=== PATIENT | female | born 1990 | race Asian ===

== ENCOUNTER 2016-12-15 19:31 | Emergency (ER) | payer OTHER ==
[~2016-12-15] VITALS: Ht 149.9 cm; Wt 48.9 kg
[2016-12-15 19:54] VITALS: TEMP 36.7; Ht 149.9 cm; Wt 48.9 kg
[2016-12-15] MEDS ORDERED: DIPHTHERIA/TETANUS/PERTUSSIS 0.5 ML SYR/VIAL IM. ONE (20:30)
[2016-12-15] MEDS ORDERED: XYLOCAINE 1%/SOD BICARB 20 ML VIAL INFIL ONE (20:30)
[2016-12-15] MEDS ORDERED: BCPILLS PO (20:32)
[2016-12-15] MEDS ORDERED: FEXO1TAB49 PO (20:32)
[2016-12-15] MEDS ORDERED: CLR10 PO (20:32)
[2016-12-15] MEDS ORDERED: IBUP-1050 PO (20:32)
[2016-12-15] MEDS ORDERED: AMOX875T PO (21:48)
--- NOTE | 2016-12-15 21:49 | EMERGENCY ROOM VISIT NOTE ---
ED Visit Note First contact with patient: 20:12 CHIEF COMPLAINT: Right bottom lip and right hand laceration from a dog bite this evening HISTORY OF PRESENT ILLNESS: Patient is a [id number] 26-year-old female who presents to the emergency department for evaluation of a dog bite with laceration to her right bottom lip and right hand. Injuries occurred about 30 minutes ago. She volunteers at a local penitentiary. She states that she was bitten by a dog that was known to her. He jumped up and bit her on the face. She pushed him off and he bit her right hand slightly before she was able to restrain him and he walked away. She notes a laceration to her right bottom lip and the palm of her right hand. She has a few other scratches and punctures on her fingers. The dogs rabies vaccinations are up-to-date. Patient is unsure of her last tetanus vaccine. There is no difficulty getting the bleeding controlled. The patient has minimal pain. She denies any dental injury. REVIEW OF SYSTEMS: Review of systems as per HPI. All other systems reviewed were negative. At least 6 systems reviewed. PMH: Electronic medical records are reviewed and summarized as above/below. See Problem List. Unsure of her last tetanus. SOCIAL HISTORY: Patient lives in an apartment with roommates. 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 PHYSICAL EXAM: Vital Signs: Reviewed Nurse's notes. CONSTITUTIONAL: Patient is a slightly anxious, otherwise appropriate 26-year-old white female who is awake and alert and in no acute distress. INTEGUMENTARY: The patient has a complex laceration through the vermilion border of the right bottom lip. There is a small flap noted. The apex of the flap is close in proximity to a healing scar from a right bottom lip piercing, which does have a slight indentation noted. The laceration is not through and through to the mouth. She also does have some ecchymosis and abrasion noted below the right bottom lip towards the midline. She is slightly tender to palpation there. Total laceration length of the lip is 1 cm. The patient also has a linear 1 cm laceration on the palm of the right hand over the thenar eminence area. There is no active bleeding and no foreign material in the wound. EMERGENCY DEPARTMENT COURSE: The patient was seen and evaluated as above. Her tetanus was updated. She will be covered with Augmentin. Attention was first turned to the bottom lip laceration. The wound was cleansed with saline thoroughly and irrigated. Wound was anesthetized with 1% plain buffered lidocaine, and cleansed slightly with Betadine. Wound repair was definitely complicated by the close proximity to the scar from the lip piercing. The vermilion border was reapproximated meticulously, but the flap and the prior scar did complicate wound repair. A total of 6, 6-0 nylon sutures were placed in the right bottom lip. Attention was then turned to the laceration on the right hand. Wound was again cleansed with Betadine, irrigated with saline and anesthetized with 1% plain buffered lidocaine. 2, 5-0 nylon sutures were placed in the hand laceration. The other smaller scratches and puncture wounds were cleansed with Betadine, but did not require suture repair. As stated above patient was medicated with Augmentin and will be placed on this given the hand and facial lacerations which required closure with sutures. Given the importance of cosmesis, I did refer the patient to Dr. Maday Lowery for further care and evaluation of her bottom lip laceration, possible suture removal and for scar revision if necessary. Current/Historical Medications Scheduled Amoxicillin & Pot Clavulanate (Augmentin 875-125 mg), 1 TAB PO BID Control Pills ( Control Pills), 1 TAB PO HS Scheduled PRN Fexofenadine Hcl (Violet Allergy), 1 TAB PO DAILY PRN for ALLERGIC REACTION Ibuprofen (Advil), 400 MG PO UD PRN for Pain Loratadine (Claritin), 10 MG PO DAILY PRN for ALLERGIC REACTION Allergies Coded Allergies: Apple (Verified Allergy, Unknown, swelling, 12/15/16) Erythromycin (Verified Allergy, Unknown, HIVES, 12/15/16) Green Ibanez (Verified Allergy, Unknown, HIVES, 12/15/16) Nut Tree (Verified Allergy, Unknown, RASH, 12/15/16) Lamoille (Verified Allergy, Unknown, RASH, 12/15/16) Pear (Verified Allergy, Unknown, HIVES, 12/15/16) Plums (Verified Allergy, Unknown, HIVES, 12/15/16) Vital Signs Date Time Temp Pulse Resp B/P Pulse Ox O2 Delivery O2 Flow Rate FiO2 12/15/16 21:59 88 18 108/77 98 12/15/16 19:54 36.7 96 18 104/68 96 Room Air Medications Administered Medications (Trade) Dose Ordered Sig/Rigo Route Start Time Stop Time Status Last Admin Dose Admin Diphtheria/ Pertussis/Tetanus Vacc (Adacel Inj) 0.5 ml ONCE ONCE IM. 12/15/16 20:30 12/15/16 20:31 DC 12/15/16 20:43 0.5 ML Amoxicillin/ Clavulanate Potassium (Augmentin 875MG Home Pack) 1 homepack UD ONCE PO 12/15/16 22:00 12/15/16 22:01 DC 12/15/16 21:53 1 HOMEPACK Departure Information Impression Primary Impression: Lip laceration Additional Impressions: Hand laceration Dog bite Prescriptions Amoxicillin & Pot Clavulanate (Augmentin 875-125 mg) 1 Tab Tab 1 TAB PO BID, #10 TAB Prov: Lacey Watson PA 12/15/16 Referrals No Doctor, Assigned (PCP) Maday Lowery MD Patient Instructions [facility] Additional Instructions Keep wounds clean and dry. Do not allow any crusting or dried blood to accumulate on sutures. Clean gently with mild soap and water. Use an antibiotic ointment for 3-4 days, then let wound dry. Suture removal from the hand in 10-12 days, from the lip in 5-7 days. Return sooner for any signs of infection (increasing redness, swelling, drainage ). Ice and elevate for swelling and pain. Ibuprofen 600 mg and Tylenol 1000 mg every 6 hrs for pain. If you would like to follow up with plastic surgery regarding the lip laceration , please call Dr. Maday Lowery's office tomorrow morning to schedule a follow- up appointment. Augmentin 875 mg: Take one pill 2 times daily for 5 days to prevent infection. All antibiotics can cause diarrhea. If this occurs and you feel worse or it does not resolve in 1-2 days follow up with your doctor or return to the Emergency Department as this could be signs of serious underlying problems. Any medication can cause an allergic reaction, stop the pills immediately and return to the ER for rash, hives, breathing difficulties, or swelling. Problem Qualifiers
[2016-12-15 21:59] VITALS: BP 108/77; PULSE 88; O2SAT 98
[2016-12-15] MEDS ORDERED: AMOXICIL/CLAVU 875MG HOME PACK PO ONE (22:00)
== END 2016-12-15 22:00 | disposition home or self-care (01) ==
LOC: C.EDB 19:34 → C.EDD 22:00
DX: S01.551A Open bite of lip, initial encounter (principal); S61.451A Open bite of right hand, initial encounter; W54.0XXA Bitten by dog, initial encounter; S60.419A Abrasion of unspecified finger, initial encounter; S61.239A Puncture wound without foreign body of unspecified finger without damage to nail, initial encounter; Z23 Encounter for immunization; Z79.3 Long term (current) use of hormonal contraceptives